=== PATIENT | female | born 1980 | race Caucasian/White ===

== ENCOUNTER 2017-06-25 18:11 | Emergency (ER) | payer BC, SELFPAY ==
[2017-06-25] MEDS ORDERED: Bicillin LA 1.2 MILLION UNITS/2 ML SYRINGE ONE (18:45)
== END 2017-06-25 19:10 | disposition home or self-care (01) ==
LOC: BURERS 18:11
DX: J02.0 Streptococcal pharyngitis (principal); F32.9 Major depressive disorder, single episode, unspecified; F41.9 Anxiety disorder, unspecified
CPT/HCPCS: 87430; 96372; J0561

== ENCOUNTER 2017-08-12 13:36 | Outpatient (CLI) | payer BC, OTHER ==
--- NOTE | 2017-08-12 17:22 | RAD ---
CHEST 2 VIEWS: Date: 08/12/17 Comparison made with the 07/18/09 study. FINDINGS: The heart is normal in size and the lungs are clear. No infiltrate or effusion seen. There is no samir dence of pneumonia or other active thoracic disease. No air is seen beneath the diaphragm. The media stinum appears normal and the trachea is midline. The bony structures appear normal. IMPRESSION: No acute thoracic finding. POS: HOME
== END 2017-08-12 13:37 | disposition home or self-care (01) ==
LOC: BURRAD 13:36
PROVIDERS: ATTEND Physician Assistant
DX: J18.9 Pneumonia, unspecified organism (principal); R05 Cough
CPT/HCPCS: 71020

== ENCOUNTER → 2017-09-03 | Emergency (ER) | payer BC ==
[~2017-09-03] MED LIST: Fentanyl 100 MCG/2 ML VIAL ONE; Ketorolac Tromethamine 30 MG/ML VIAL ONE; methylPREDNISolone Sod Succ/PF 125 MG/2 ML VIAL ONE
[2017-09-03 20:03] LABS: #Basophils 0.1 thou/uL (0.0-0.2); #Eosinphils 0.2 thou/uL (0.0-0.7); #Lymphocytes 2.6 thou/uL (1.20-3.40); #Monocytes 0.6 thou/uL (0.11-0.59); #Neutrophils 3.8 thou/uL (1.40-6.50); %Basophils 0.9 % (0.0-1.0); %Eosinophils 2.1 % (0.0-10.0); %Monocytes 8.9 % (0.0-10.0); %Neutrophils 52.1 % (42.0-75.0); Hemoglobin 13.7 g/dL (12.0-16.0); Mean Corpuscular HGB CONC 33.7 g/dL (32.0-36.0); Mean Corpuscular Hemoglobin 31.2 pg (27.0-31.0); Mean Corpuscular Volume 92.6 fl (81.0-99.0); Platelet Count 255 thou/uL (130-400); RBC Distribution Width 11.2 % (11.5-14.5); Red Blood Cell (RBC) Count 4.38 mill/uL (4.20-5.40); White Blood Cell (WBC) Count 7.2 thou/uL (4.8-10.8)
[2017-09-03 20:17] LABS: ALT (SGPT) 12 U/L (8-55); AST (SGOT) 14 U/L (5-34); Albumin 4.3 g/dL (3.5-5.0); Alkaline Phosphatase 85 U/L (40-150); Anion Gap 17 mmol/L (10-20); BUN (Urea Nitrogen) 16 mg/dL (7.0-18.7); Bilirubin, Total 0.2 mg/dL (0.2-1.2); Calc. Creatinine Clearance 0 mL/min (70-130); Calcium 9.5 mg/dL (7.8-10.44); Carbon Dioxide 25 mmol/L (22-29); Chloride 104 mmol/L (98-107); Estimated GFR-MDRD 80; Globulin 2.8 g/dL (2.4-3.5); Glucose 82 mg/dL (70-105); Lipase 44 U/L (8-78); Potassium 3.9 mmol/L (3.5-5.1); Protein, Total 7.1 g/dL (6.0-8.3); Sodium 142 mmol/L (136-145)
[2017-09-03 20:18] LABS: CKMB 0.9 ng/mL (0-6.6); Troponin I Less than 0.010 ng/mL (< 0.028)
--- NOTE | 2017-09-03 23:05 | RAD ---
PORTABLE CHEST 09/03/17 An AP portable film at 1939 is compared with a 07/2017 study. The heart is normal in size and the lungs are clear. No infiltrate or effusion was seen. The vessels are not congested. The trachea is midline. IMPRESSION: No acute thoracic finding. POS: HOME
== END ==
LOC: BURERS 19:22
DX: I30.9 Acute pericarditis, unspecified (principal); F32.9 Major depressive disorder, single episode, unspecified; F41.9 Anxiety disorder, unspecified; Z79.899 Other long term (current) drug therapy
CPT/HCPCS: 71010; 80053; 82553; 83605; 83690; 83880; 84484; 85025; 85379; 85652; 87040; 93005; 94760; 96374; 96375; J1170; J1885; J2930; J3010

== ENCOUNTER 2017-11-28 17:13 | Outpatient (CLI) | payer OTHER ==
--- NOTE | 2017-11-28 21:41 | RAD ---
CHEST TWO VIEWS: Date: 11-28-17 FINDINGS: PA and lateral views are compared with 09-03-17. The heart is normal in size. The mediastinum shows no widening or shift. The lungs are clear with no infiltrate or effusion seen. Healing fractures of the left 5th, 6th, and 7th ribs are seen laterally. This is not definitely visible on the prior study. IMPRESSION: 1. No acute parenchymal changes. 2. Healing fractures of the left 5th thru 7th ribs. Code T POS: HOME
== END 2017-11-28 17:14 | disposition home or self-care (01) ==
LOC: BURRAD 17:13
PROVIDERS: ATTEND Family Medicine
DX: J40 Bronchitis, not specified as acute or chronic (principal); S22.42XD Multiple fractures of ribs, left side, subsequent encounter for fracture with routine healing
CPT/HCPCS: 71046

== ENCOUNTER 2018-02-23 11:50 | Emergency (ER) | payer BC, OTHER ==
[2018-02-23] MEDS ORDERED: ALPRAZolam 0.5 MG TAB ONE (12:02)
== END 2018-02-23 12:26 | disposition home or self-care (01) ==
LOC: BURERS 11:50
DX: R00.0 Tachycardia, unspecified (principal); T44.5X5A Adverse effect of predominantly beta-adrenoreceptor agonists, initial encounter; F41.9 Anxiety disorder, unspecified; F32.9 Major depressive disorder, single episode, unspecified
CPT/HCPCS: 93005

== ENCOUNTER 2018-07-18 15:22 | Emergency (ER) | payer OTHER ==
[2018-07-18] MEDS ORDERED: Lorazepam 2 MG/ML VIAL ONE (15:40)
[2018-07-18 15:49] LABS: #Eosinphils 0.1 thou/uL (0.0-0.7); #Lymphocytes 2.1 thou/uL (1.20-3.40); #Monocytes 0.7 thou/uL (0.11-0.59); #Neutrophils 3.8 thou/uL (1.40-6.50); %Basophils 0.5 % (0.0-1.0); %Eosinophils 1.8 % (0.0-10.0); %Lymphocytes 31.3 % (21.0-51.0); %Monocytes 9.7 % (0.0-10.0); %Neutrophils 56.8 % (42.0-75.0); Hemoglobin 12.7 g/dL (12.0-16.0); Mean Corpuscular HGB CONC 32.9 g/dL (32.0-36.0); Mean Corpuscular Hemoglobin 29.5 pg (27.0-31.0); Mean Corpuscular Volume 89.6 fL (78.0-98.0); Mean Platelet Volume 10.2 fL (7.4-10.4); Platelet Count 268 thou/uL (130-400); RBC Distribution Width 11.3 % (11.5-14.5); Red Blood Cell (RBC) Count 4.31 mill/uL (4.20-5.40); White Blood Cell (WBC) Count 6.8 thou/uL (4.8-10.8)
[2018-07-18 16:03] LABS: ALT (SGPT) 11 U/L (8-55); AST (SGOT) 12 U/L (5-34); Albumin 4.6 g/dL (3.5-5.0); Alkaline Phosphatase 62 U/L (40-150); Anion Gap 14 mmol/L (10-20); BUN (Urea Nitrogen) 11 mg/dL (7.0-18.7); Bilirubin, Total Less than 0.2 mg/dL (0.2-1.2); Calc. Creatinine Clearance 0 mL/min (70-130); Calcium 9.9 mg/dL (7.8-10.44); Carbon Dioxide 27 mmol/L (22-29); Chloride 106 mmol/L (98-107); Estimated GFR-MDRD 71; Globulin 2.5 g/dL (2.4-3.5); Glucose 96 mg/dL (70-105); Potassium 4.3 mmol/L (3.5-5.1); Protein, Total 7.1 g/dL (6.0-8.3); Sodium 143 mmol/L (136-145)
[2018-07-18 16:13] LABS: Troponin I Less than 0.010 ng/mL (< 0.028)
== END 2018-07-18 16:32 | disposition home or self-care (01) ==
LOC: BURERS 15:22
DX: F41.1 Generalized anxiety disorder (principal); F41.9 Anxiety disorder, unspecified; F32.9 Major depressive disorder, single episode, unspecified
CPT/HCPCS: 36415; 80053; 82553; 84484; 85025; 93005; 96361; 96374; J2060

== ENCOUNTER 2020-11-17 20:31 | Emergency (ER) | payer SELFPAY ==
[2020-11-17] MEDS ORDERED: Ondansetron ODT 4 MG TAB ONE ×3 (21:35→22:24)
[2020-11-17 21:58] LABS: Bilirubin Small (Negative); Blood, Urine Trace (Negative); Clarity Slightly Cloudy (Clear); Glucose, Urine (Dipstick) Negative (Negative); Ketone, Urine Trace mg/dL (Negative); Leukocyte Negative (Negative); Nitrite Negative (Negative); Protein, Urine (Dipstick) Trace mg/dL (Neg-Trace); Urobilinogen 0.2 mg/dL (Less than 2); pH, Urine 5.5 (5.0-9.0)
[2020-11-17 21:59] LABS: Specific Gravity, Urine 1.029 (1.002-1.036)
[2020-11-17 22:00] LABS: Pregnancy Test - Urine (BHCG) Negative (Negative); Pregu Control Background? CLEAR/WHITE (CLR/WHITE); Pregu Control Bar Appear? YES (CONTROL BAR); Specific Gravity 1.029 (1.002-1.036)
[2020-11-17 22:02] LABS: Bacteria/HPF Rare-Few HPF (None Seen); Mucous/LPF 1+ LPF (<2+); Squamous Epithelial 0-3 HPF (0-3); WBC/HPF 0-3 HPF (0-3)
== END 2020-11-17 22:30 | disposition home or self-care (01) ==
LOC: BURERS 20:31
DX: R11.2 Nausea with vomiting, unspecified (principal); Z79.899 Other long term (current) drug therapy; M19.90 Unspecified osteoarthritis, unspecified site
CPT/HCPCS: 81003; 81015; 81025; 93005; Q0162

== ENCOUNTER 2021-12-19 00:51 | Emergency (ER) | payer SELFPAY ==
[2021-12-19] MEDS ORDERED: Ondansetron ODT 4 MG TAB ONE (01:21)
[2021-12-19] MEDS ORDERED: Magnesium 2 GM/50 ML BAG (IN WATER) ONE (01:33)
[2021-12-19] MEDS ORDERED: Lidocaine Viscous Sol 2% 15 ml UD Cup ONE ×2 (01:33→01:37)
[2021-12-19] MEDS ORDERED: Milk Of Magnesia 30 ML UDCUP ONE (01:36)
[2021-12-19] MEDS ORDERED: Sucralfate 1 GM TAB PO SCH (02:15)
== END 2021-12-19 02:16 | disposition home or self-care (01) ==
LOC: BURERS 00:51
DX: K21.00 Gastro-esophageal reflux disease with esophagitis, without bleeding (principal); M19.90 Unspecified osteoarthritis, unspecified site; M79.7 Fibromyalgia; Z87.891 Personal history of nicotine dependence
CPT/HCPCS: 87081; 87430; 99284; J3475; Q0162